=== PATIENT | male | born 1990 | race Caucasian/White ===

== ENCOUNTER 2024-02-05 04:41 | Emergency (ER) | payer OTHER, SELFPAY ==
[2024-02-05 04:44] VITALS: BP 131/85; PULSE 94; RESP 20; TEMP 36.6; O2SAT 100
--- NOTE | 2024-02-05 05:24 | ED.GENADULT ---
HPI - General Adult General Chief complaint: Epistaxis Stated complaint: nose bleed Time Seen by Provider: 02/05/24 05:08 History of Present Illness HPI narrative: Patient is a 33-year-old gentleman presents emergency department with chief complaint of epistaxis. Patient reports about 4 hours ago started bleeding out of the right nostril reports that is backing up his nose tried pressure the patient does report that he is on Coumadin due to a mechanical valve. The patient reports his INR was about 3 he had home on his home meter Related Data Allergies Allergy/AdvReac Type Severity Reaction Status Date / Time No Known Allergies Allergy Unverified 03/10/16 17:25 Review of Systems Review of Systems: A 10 system review of systems was completed on the patient and is negative except for what is stated in the HPI. Nursing and ancillary documentation was reviewed. [facility] Family History Family History Father CHF (congestive heart failure) Social History Social History Smoking packs per day: 0.5 Smoking cigarettes per day: 10.0 Years smoked: 6 Smoking pack-years: 3.00 Smoking status: Former smoker Tobacco type: cigarettes Second hand tobacco smoke exposure: No Smoking end date: 10/27/13 Exam Narrative: GENERAL: Well-appearing, well-nourished, and in no acute distress. HEAD: Normocephalic, atraumatic. EYES: PERRLA and EOMI. ENT: Nares clear, no rhinorrhea there is active epistaxis out of the right nostril. Mucous membranes moist. NECK: Supple. CHEST: Clear to auscultation. No respiratory distress. HEART: Regular rate and rhythm. No murmur heard. Normal peripheral pulses. ABDOMEN: Soft, nontender, nondistended, normal active bowel sounds. EXTREMITIES: Normal range of motion. No edema. SKIN: Warm, dry, no rash. NEURO: No focal deficits. Alert and oriented x3. PSYCH: Normal mood and affect. Course Vital Signs Vital signs: Vital Signs Temperature 36.6 C 02/05/24 04:44 Pulse Rate 94 02/05/24 04:44 Respiratory Rate 20 02/05/24 04:44 Blood Pressure 131/85 02/05/24 04:44 Pulse Oximetry 100 02/05/24 04:44 Oxygen Delivery Room Air 02/05/24 04:44 Temperature 36.6 C 02/05/24 04:44 Pulse Rate 94 02/05/24 04:44 Respiratory Rate 20 02/05/24 04:44 Blood Pressure 131/85 02/05/24 04:44 Pulse Oximetry 100 02/05/24 04:44 Oxygen Delivery Room Air 02/05/24 04:44 Procedures Epistaxis Control right: Epistaxis Control Date: 02/05/24 Epistaxis Control Time: 06:25 Time Out Performed: Yes Nose Prepped With: lidocaine Direct Inspection: yes Clots Removed by: blowing nose Cautery Used: none Device Inserted: hemostatic balloon Device Size: 75 Patient Tolerated Procedure: well Medical Decision Making MDM Narrative Medical decision making narrative: differential diagnosis includes anterior epistaxis, posterior epistaxis, supratherapeutic INR patient's nose was packed and bleeding was controlled current INR is 2.3 hemoglobin was 12.4 Vital Signs Vital Signs: Vital Signs Temperature 36.6 C 02/05/24 04:44 Pulse Rate 94 02/05/24 04:44 Respiratory Rate 20 02/05/24 04:44 Blood Pressure 131/85 02/05/24 04:44 Pulse Oximetry 100 02/05/24 04:44 Oxygen Delivery Room Air 02/05/24 04:44 Temperature 36.6 C 02/05/24 04:44 Pulse Rate 94 02/05/24 04:44 Respiratory Rate 20 02/05/24 04:44 Blood Pressure 131/85 02/05/24 04:44 Pulse Oximetry 100 02/05/24 04:44 Oxygen Delivery Room Air 02/05/24 04:44 Lab Data 02/05/24 05:40 02/05/24 05:40 Labs: Lab Results 02/05/24 Range/Units 05:40 WBC 11.8 H (4.5-10.0) K/mm3 RBC 4.60 (4.6-6.20) M/mm3 Hgb 12.4 L (14.0-18.0) g/dL Hct 39.3 L (42.0-52
[2024-02-05 05:48] LABS: Basophils Absolute Auto 0.1 K/mm3 (0.0-0.1); Basophils Percent Auto 0.9 % (0.2-1.2); Eosinophils Absolute Auto 0.6 K/mm3 (0-0.3); Eosinophils Percent Auto 5.1 % (0-4.4); Hematocrit 39.3 % (42.0-52.0); Hemoglobin 12.4 g/dL (14.0-18.0); Immature Granulocyte Absolute 0.05 K/mm3 (0.00-0.031); Immature Granulocyte Percent A 0.4 % (0-0.5); Lymphocytes Absolute Auto 1.22 K/mm3 (0.9-3.2); Lymphocytes Percent Auto 10.4 % (18.3-44.2); Mean Corpuscular HGB Conc 31.6 g/dl (32-36); Mean Corpuscular Volume 85.4 fl (80-100); Mean Platelet Volume 9.3 fl (7.4-10.4); Monocytes Absolute Auto 0.7 K/mm3 (0.1-0.6); Monocytes Percent Auto 5.8 % (2.6-8.5); Neutrophils Absolute Auto 9.1 K/mm3 (1.3-6.7); Neutrophils Percent Auto 77.4 % (45.5-73.1); Platelet Count Result 469 k/mm3 (150-375); Red Cell Distribution Width 13.5 % (11.5-14.5); White Blood Count 11.8 K/mm3 (4.5-10.0)
[2024-02-05 06:00] LABS: INR 2.3
[2024-02-05 06:01] LABS: Alanine Aminotransferase 20 U/L (6-50); Albumin Level 4.8 g/dL (3.5-5.1); Alkaline Phosphatase 68 U/L (38-126); Anion Gap 8 mmol/L (4-12); Aspartate Amino Transferase 31 U/L (17-59); Bilirubin,Total 0.6 mg/dL (0.2-1.3); Blood Urea Nitrogen 19 mg/dL (9-20); Calcium 10.2 mg/dL (8.4-10.2); Carbon Dioxide 26 mmol/L (22-30); Chloride 106 mmol/L (98-107); Estimated CRCL calculation 130 ml/min; Estimated Glomerular Filt Rate > 60; Glucose 107 mg/dL (65-110); Potassium 4.2 mmol/L (3.4-5.0); Sodium 140 mmol/L (137-145)
[2024-02-05 06:02] LABS: Partial Thromboplastin Time 86.6 Seconds (22.3-36.8)
== END 2024-02-05 06:35 | disposition home or self-care (01) ==
PROVIDERS: Emergency Provider Emergency Medicine; PCP Internal Medicine
DX: R04.0 Epistaxis (principal); Z95.2 Presence of prosthetic heart valve; Z87.891 Personal history of nicotine dependence; Z79.01 Long term (current) use of anticoagulants
CPT/HCPCS: 30901; 36415; 80053; 85025; 85610; 85730; 99283; A9270

== ENCOUNTER 2024-02-05 16:27 | Emergency (ER) | payer OTHER, SELFPAY ==
[2024-02-05 16:32] VITALS: BP 115/87; PULSE 99; RESP 16; TEMP 36.1; O2SAT 100
--- NOTE | 2024-02-05 17:30 | ED.EPISTAXIS ---
HPI - Epistaxis General Chief complaint: Epistaxis Stated complaint: nosebleed Time Seen by Provider: 02/05/24 17:20 Source: patient Mode of arrival: ambulatory History of Present Illness HPI Narrative: This is a 33-year-old male with history of mechanical heart valve who presents to the ED with chief epistaxis beginning around 1400 today. Patient was seen her earlier this morning for left-sided nosebleed run a rocket placed. He now has a right-sided nosebleed. INR from this morning is 2.3. Patient reports around 2:00 a.m. this afternoon started spontaneous bleeding on the left side. He has tried direct pressure but it is very painful with the right-sided nasal packing. States he has never had a nose bleed like this before. He does feel like the bleed is running down back of throat, but he has been able to spit up. Denies fevers, chills, nausea shortness of breath, cough. Related Data Allergies Allergy/AdvReac Type Severity Reaction Status Date / Time No Known Allergies Allergy Unverified 03/10/16 17:25 Review of Systems Review of Systems: All systems as dictated in [place] Family History Family History Father CHF (congestive heart failure) Social History Social History Smoking packs per day: 0.5 Smoking cigarettes per day: 10.0 Years smoked: 6 Smoking pack-years: 3.00 Smoking status: Former smoker Tobacco type: cigarettes Second hand tobacco smoke exposure: No Smoking end date: 10/27/13 Exam Narrative: GENERAL: Well-appearing, well-nourished, and in no acute distress. HEAD: Normocephalic, atraumatic. EYES: PERRLA and EOMI. ENT: Semi-clotted blood currently expelling from the left naris. The right naris packed with rhino rocket. Posterior pharynx is clear. . Mucous membranes moist. Oropharynx without tonsillar hypertrophy exudate or other lesions. NECK: Supple. No adenopathy or masses. CHEST: No respiratory distress. Clear to auscultation. No wheezes rales or rhonchi HEART: Regular rate and rhythm. No murmur heard. Normal peripheral pulses. ABDOMEN: Soft, nontender, nondistended, normal active bowel sounds. MSK: Normal range of motion. No edema. SKIN: Warm, dry, no rash. NEURO: Alert and oriented x3. No focal deficits. PSYCH: Normal mood and affect. Course Course Emergency Course: Re-evaluation 1909: Bleeding had initially slowed but has restarted again. Unable to visualize the bleeding site. Re-evaluation 2035: Bleeding has resolved after the bilateral nasal packing. He expresses that he has follow-up at 11:00 a.m. tomorrow and he would like to go home. Offered admission for pain control and for observation but patient would rather go home and follow-up with his appointment tomorrow. Vital Signs Vital signs: Vital Signs Temperature 97.0 F L 02/05/24 16:32 Pulse Rate 99 02/05/24 16:32 Respiratory Rate 16 02/05/24 16:32 Blood Pressure 115/87 02/05/24 16:32 Pulse Oximetry 100 02/05/24 16:32 Temperature 97.0 F L 02/05/24 16:32 Pulse Rate 99 02/05/24 19:48 Respiratory Rate 18 02/05/24 19:48 Blood Pressure 129/96 H 02/05/24 19:48 Pulse Oximetry 100 02/05/24 19:48 Procedures Epistaxis Control left: Epistaxis Control Date: 02/05/24 Epistaxis Control Time: 19:53 Time Out Performed: Yes Nose Prepped With: oxymetazoline Direct Inspection: yes and unable to visualize Clots Removed by: blowing nose Cautery Used: none Device Inserted: hemostatic balloon Device Size: 75 Patient Tolerated Procedure: well MDM - Epistaxis MDM Narrative Medical decision making narrative: This is a 33-year-old male who presents to the ED with chief complaint of left-sided epistaxis. He was here this morning for the same on the right side and had rhino rocket plac
[2024-02-05 18:00] VITALS: BP 129/81; PULSE 87; RESP 18; O2SAT 99
[2024-02-05 18:31] LABS: Basophils Absolute Auto 0.1 K/mm3 (0.0-0.1); Basophils Percent Auto 0.9 % (0.2-1.2); Eosinophils Absolute Auto 0.8 K/mm3 (0-0.3); Eosinophils Percent Auto 6.9 % (0-4.4); Hematocrit 39.5 % (42.0-52.0); Hemoglobin 12.6 g/dL (14.0-18.0); Immature Granulocyte Absolute 0.04 K/mm3 (0.00-0.031); Immature Granulocyte Percent A 0.3 % (0-0.5); Lymphocytes Absolute Auto 1.55 K/mm3 (0.9-3.2); Lymphocytes Percent Auto 12.9 % (18.3-44.2); Mean Corpuscular HGB Conc 31.9 g/dl (32-36); Mean Corpuscular Hemoglobin 26.8 pg (26-34); Mean Corpuscular Volume 83.9 fl (80-100); Mean Platelet Volume 9.2 fl (7.4-10.4); Monocytes Absolute Auto 0.8 K/mm3 (0.1-0.6); Monocytes Percent Auto 6.8 % (2.6-8.5); Neutrophils Absolute Auto 8.7 K/mm3 (1.3-6.7); Neutrophils Percent Auto 72.2 % (45.5-73.1); Platelet Count Result 467 k/mm3 (150-375); Red Blood Count 4.71 M/mm3 (4.6-6.20); Red Cell Distribution Width 13.5 % (11.5-14.5); White Blood Count 12.1 K/mm3 (4.5-10.0)
[2024-02-05 18:55] LABS: Alanine Aminotransferase 20 U/L (6-50); Albumin Level 4.8 g/dL (3.5-5.1); Alkaline Phosphatase 75 U/L (38-126); Anion Gap 9 mmol/L (4-12); Aspartate Amino Transferase 26 U/L (17-59); Bilirubin,Total 0.6 mg/dL (0.2-1.3); Blood Urea Nitrogen 14 mg/dL (9-20); Calcium 10.4 mg/dL (8.4-10.2); Carbon Dioxide 25 mmol/L (22-30); Chloride 106 mmol/L (98-107); Estimated Glomerular Filt Rate > 60; Glucose 114 mg/dL (65-110); Sodium 140 mmol/L (137-145)
[2024-02-05 18:58] LABS: INR 2.3; Prothrombin Time 26.8 Seconds (11.1-14.7)
[2024-02-05 19:00] LABS: Partial Thromboplastin Time 87.8 Seconds (22.3-36.8)
[2024-02-05 19:48] VITALS: BP 129/96; PULSE 99; RESP 18; O2SAT 100
[2024-02-05] MEDS: AMOXICILLIN/CLAVULANATE K 875-125 MG TAB 1 TABLET PO (21:04)
[2024-02-05] MEDS: HYDROcodone/acetaminophen (*CRX) 5-325 MG TABLET 1 TAB PO (21:04)
== END 2024-02-05 21:13 | disposition home or self-care (01) ==
PROVIDERS: Emergency Provider Physician Assistant; PCP Internal Medicine
DX: R04.0 Epistaxis (principal); Z95.2 Presence of prosthetic heart valve; Z87.891 Personal history of nicotine dependence; Z79.01 Long term (current) use of anticoagulants
CPT/HCPCS: 30901; 30903; 36415; 80053; 85025; 85610; 85730; 99283; A9270

== ENCOUNTER 2024-03-15 07:15 | Outpatient (RCR) | payer OTHER, SELFPAY | END 2024-03-15 07:57 | disposition home or self-care (01) | LOC: ANHCPREHAB 07:15 | PROVIDERS: PCP Internal Medicine; Visit Provider Internal Medicine | DX: Z95.2 Presence of prosthetic heart valve (principal); Z95.1 Presence of aortocoronary bypass graft | CPT/HCPCS: 93798 ==